=== PATIENT | male | born 1950 | race African-American/Black ===

== ENCOUNTER 2024-09-09 17:26 | Inpatient (IN) | payer MEDICARE, MEDICAID ==
[~2024-09-09] VITALS: Ht 180.3 cm; Wt 69.9 kg
[2024-09-09 18:59] LABS: COVID AG,FIA SOURCE NASAL SWAB
[2024-09-09] MEDS ORDERED: HALOPERIDOL 5 MG TABLET PO PRN (19:00)
[2024-09-09] MEDS ORDERED: ZOLPIDEM TARTRATE 10 MG TABLET PO PRN (19:00)
[2024-09-09 19:02] LABS: BASOPHILS % (AUTO) 0.6 % (0.0-2.0); EOSINOPHILS % (AUTO) 1.1 % (1.0-6.0); HEMATOCRIT 36.8 % (41-53); HEMOGLOBIN 11.8 g/dL (13.5-17.5); LYMPHOCYTES % (AUTO) 36.6 % (22.0-44.0); MEAN CORPUSCULAR HEMOGLOBIN 27.4 pg (26.0-34.0); MEAN CORPUSCULAR VOLUME 86 fL (80-100); MONOCYTES # (AUTO) 0.3 K/uL (0.1-1.0); MONOCYTES % (AUTO) 6.1 % (2.0-9.0); NEUTROPHILS # (AUTO) 3.1 K/uL (1.8-7.7); NEUTROPHILS % (AUTO) 55.6 % (40.0-70.0); PLATELET COUNT (AUTO) 180 K/uL (150-450); RED BLOOD CELL COUNT(AUTO) 4.29 MIL/uL (4.50-5.90); RED CELL DISTRIBUTION WIDTH 21.2 % (11.5-14.5); WHITE BLOOD COUNT (AUTO) 5.5 K/uL (4.5-11.0)
[2024-09-09 19:11] LABS: ANION GAP 4 mmol/L (8-16); CALCIUM, TOTAL 9.3 mg/dL (8.8-10.5); CARBON DIOXIDE 30 mmol/L (22-29); CHLORIDE 106 mmol/L (98-107); CREATININE 1.13 mg/dL (0.60-1.30); GLOMERULAR FILTR. RATE CALC > 60 mL/min (>60); GLUCOSE,RANDOM 76 mg/dL (70-110); POTASSIUM 4.1 mmol/L (3.5-5.1); SODIUM SERUM 140 mmol/L (136-145); UREA NITROGEN, BLOOD 26 mg/dL (7-18)
[2024-09-09 19:19] LABS: SARS-COV2 (COVID) ANTIGEN,FIA Negative (Negative)
[2024-09-09 19:22] LABS: ALCOHOL, BLOOD (SERUM) < 3 mg/dL (0-10)
[2024-09-09 20:10] LABS: APPEARANCE,URINE CLEAR (CLEAR); BILIRUBIN,URINE NEGATIVE (NEGATIVE); COLOR,URINE YELLOW (YELLOW); GLUCOSE, URINE (UA) NEGATIVE (NEGATIVE); KETONES,URINE NEGATIVE (NEGATIVE); LEUKOCYTE ESTERASE ,URINE NEGATIVE (NEGATIVE); NITRATE,URINE NEGATIVE (NEGATIVE); OCCULT BLOOD,URINE NEGATIVE (NEGATIVE); PROTEIN,URINE TRACE mg/dL (NEGATIVE); SPECIFIC GRAVITIY, URINE 1.029 (1.003-1.030)
[2024-09-09 20:20] LABS: ALCOHOL, URINE DRUG SCREEN NEGATIVE (NEGATIVE); AMPHET/METH SCREEN,URINE NEGATIVE (NEGATIVE); BARBITURATE SCREEN, URINE NEGATIVE (NEGATIVE); BENZODIAZEPINES SCREEN,URINE NEGATIVE (NEGATIVE); CANNABINOID SCREEN,URINE NEGATIVE (NEGATIVE); COCAINE SCREEN,URINE NEGATIVE (NEGATIVE); METHADONE SCREEN, URINE NEGATIVE (NEGATIVE); OPIATE SCREEN,URINE NEGATIVE (NEGATIVE); PHENCYCLIDINE SCREEN,URINE NEGATIVE (NEGATIVE)
[2024-09-09 22:05] VITALS: O2SAT 96
[2024-09-10 00:27] LABS: CHOL/HDL RATIO 1.5 (4.2-7.3); CHOLESTEROL 113 mg/dL (131-200); HDL CHOLESTEROL 76 mg/dL (40-60); LDL CHOL (CALC.) 30 mg/dL (0-130); TRIGLYCERIDES 37 mg/dL (15-150)
[2024-09-10 01:39] VITALS: BP 115/59; PULSE 60; RESP 18; TEMP 96.5; O2SAT 97
[2024-09-10] MEDS ORDERED: PNEUMOCOCCAL VACCINE POLYVALENT 0.5 ML SYRINGE [PPSV23] IM. ONE (02:30)
[2024-09-10] MEDS ORDERED: INFLUENZA VIRUS VACCINE TVS (6MO+) 2024-25/PF 45 MCG/0.5 ML SYRINGE IM. ONE (02:30)
[2024-09-10] MEDS ORDERED: OMEPRAZOLE 20 MG CAPSULE PO PRN (05:45)
[2024-09-10] MEDS ORDERED: DOCUSATE SODIUM 100 MG CAPSULE PO PRN (05:45)
[2024-09-10] MEDS ORDERED: BACITRACIN 28 GM OINTMENT TP PRN (05:45)
[2024-09-10] MEDS ORDERED: ALBUTEROL SULFATE HFA 90 MCG/PUFF 8 GM INHALER IH PRN (05:45)
[2024-09-10] MEDS ORDERED: ONDANSETRON 4 MG TABLET PO PRN (05:45)
[2024-09-10] MEDS ORDERED: MAG HYDROX/ALUMINUM HYD/SIMETH ES 30 ML SUSPENSION UDCUP PO PRN (05:45)
[2024-09-10] MEDS ORDERED: BENZOCAINE/MENTHOL LOZENGE PO PRN (05:45)
[2024-09-10] MEDS ORDERED: CloNIDine HCL 0.1 MG TABLET PO PRN (05:45)
[2024-09-10] MEDS ORDERED: IBUPROFEN 600 MG TABLET PO PRN (05:45)
[2024-09-10] MEDS ORDERED: MAGNESIUM HYDROXIDE SUSPENSION 30 ML UDCUP PO PRN (05:45)
[2024-09-10] MEDS ORDERED: LOPERAMIDE HCL 2 MG CAPSULE PO PRN (05:45)
[2024-09-10] MEDS ORDERED: PETROLATUM,WHITE 28 GM JELLY TP PRN (05:45)
[2024-09-10 08:07] VITALS: BP 110/73; PULSE 65; RESP 16; TEMP 97.6; O2SAT 99
[2024-09-10] MEDS: TraZODone HCL 50 MG TABLET PO SCH (12:49)
[2024-09-10] MEDS: SERTRALINE HCL 50 MG TABLET PO SCH (12:49)
[2024-09-10] MEDS: BusPIRone HCL 10 MG TABLET PO SCH (12:49)
[2024-09-10] MEDS: DIVALPROEX SODIUM 250 MG ER TABLET PO SCH (16:22)
[2024-09-10 20:06] VITALS: BP 156/77; PULSE 64; RESP 16; TEMP 96; O2SAT 98
[2024-09-11 08:15] VITALS: BP 148/75; PULSE 71; RESP 18; TEMP 97; O2SAT 96
[2024-09-11 20:20] VITALS: BP 126/74; PULSE 62; RESP 17; TEMP 97.5; O2SAT 97
[2024-09-12 09:12] VITALS: BP 110/76; PULSE 70; RESP 17; TEMP 96.5; O2SAT 99
[2024-09-12 20:25] VITALS: RESP 18
[2024-09-13 08:04] VITALS: BP 108/77; PULSE 66; RESP 17; TEMP 98.2; O2SAT 96
[2024-09-13] MEDS: LORazepam 2 MG TABLET PO PRN (08:38)
[2024-09-13 20:18] VITALS: BP 101/59; PULSE 79; RESP 17; TEMP 97.1; O2SAT 98
[2024-09-14] MEDS: ACETAMINOPHEN 325 MG TABLET PO PRN (16:31)
[2024-09-14 16:32] VITALS: RESP 16; TEMP 99.7
[2024-09-14 20:24] VITALS: BP 102/61; PULSE 76; RESP 15; TEMP 98.9; O2SAT 94
[2024-09-15 03:21] VITALS: BP 134/77; PULSE 71; RESP 17; TEMP 99.1
[2024-09-15] MEDS: DIVALPROEX SODIUM 250 MG ER TABLET PO SCH (08:12)
[2024-09-15] MEDS: BREXPIPRAZOLE 0.25 MG TABLET PO SCH (08:13)
[2024-09-15] MEDS: SERTRALINE HCL 100 MG TABLET PO SCH (08:14)
[2024-09-15] MEDS: BusPIRone HCL 10 MG TABLET PO SCH (08:14)
[2024-09-15 08:33] VITALS: BP 125/66; PULSE 66; RESP 16; TEMP 97.3; O2SAT 98
[2024-09-15 20:05] VITALS: BP 120/75; PULSE 80; RESP 18; TEMP 97.4; O2SAT 98
[2024-09-16 08:03] VITALS: BP 102/60; PULSE 72; RESP 17; TEMP 97.3; O2SAT 96
[2024-09-16] MEDS ORDERED: SERT-440 PO (17:56)
[2024-09-16] MEDS ORDERED: DIVA-85 PO (17:56)
[2024-09-16] MEDS ORDERED: BUSP10TA23 PO (17:56)
[2024-09-16] MEDS ORDERED: TRAZ-252 PO (17:56)
[2024-09-16] MEDS ORDERED: BREX0.25 PO (17:56)
[2024-09-16 20:21] VITALS: BP 117/65; PULSE 68; RESP 16; TEMP 97.2; O2SAT 92
[2024-09-17 08:04] VITALS: BP 126/74; PULSE 73; RESP 17; TEMP 97.2; O2SAT 98
[2024-09-17 20:07] VITALS: BP 119/89; PULSE 70; RESP 18; TEMP 97.5; O2SAT 92
[2024-09-18 08:25] VITALS: BP 102/62; PULSE 71; RESP 18; TEMP 97.5; O2SAT 95
== END 2024-09-18 17:00 | DRG 885 ==
LOC: EMS 17:26 → B2X 09-10 01:31
PROVIDERS: ADMIT Psychiatry & Neurology Child & Adolescent Psychiatry; ATTEND Psychiatry & Neurology Psychiatry
PROC: GZHZZZZ Group Psychotherapy (ICD-10-PCS; principal; 2024-09-11)
PROC: GZ52ZZZ Individual Psychotherapy, Cognitive (ICD-10-PCS; 2024-09-11)
PROC: GZ56ZZZ Individual Psychotherapy, Supportive (ICD-10-PCS; 2024-09-11)
DX: F20.9 Schizophrenia, unspecified (principal); D64.9 Anemia, unspecified; I10 Essential (primary) hypertension; J44.9 Chronic obstructive pulmonary disease, unspecified; Z20.822 Contact with and (suspected) exposure to COVID-19; K59.00 Constipation, unspecified; F41.9 Anxiety disorder, unspecified; K21.9 Gastro-esophageal reflux disease without esophagitis; E78.5 Hyperlipidemia, unspecified; M19.90 Unspecified osteoarthritis, unspecified site; Z86.73 Personal history of transient ischemic attack (TIA), and cerebral infarction without residual deficits
CPT/HCPCS: 80048; 80061; 80164; 80307; 81003; 83036; 85025; 87081; 87340; 87481; 99285; G0480

== ENCOUNTER 2025-01-05 20:32 | Emergency (ER) | payer MEDICARE, OTHER ==
[~2025-01-05] VITALS: Ht 177.8 cm; Wt 72.7 kg
[~2025-01-05 20:32] MED LIST: ASPI81TA87 PO; ATOR20TA PO; BREX0.25 PO; BUSP10TA23 PO; DIVA-85 PO; FERR325T27 PO; SERT-440 PO; TRAZ-252 PO
[2025-01-05 20:55] VITALS: BP 166/94; PULSE 60; RESP 20; TEMP 97.7; O2SAT 100
[2025-01-05] MEDS ORDERED: BISA10SU11 PR (21:04)
[2025-01-05] MEDS ORDERED: MINE133E26 PR (21:04)
[2025-01-05] MEDS ORDERED: LOSA-381 PO (21:04)
[2025-01-05] MEDS ORDERED: BREX1TAB PO (21:04)
[2025-01-05] MEDS ORDERED: ACET-2247 PO (21:04)
[2025-01-05] MEDS ORDERED: MAGN-169 PO (21:04)
== END 2025-01-06 02:30 ==
LOC: EMS 20:32
DX: S51.012A Laceration without foreign body of left elbow, initial encounter (principal); S09.90XA Unspecified injury of head, initial encounter; J44.9 Chronic obstructive pulmonary disease, unspecified; I10 Essential (primary) hypertension; E78.00 Pure hypercholesterolemia, unspecified; F32.A Depression, unspecified; Z79.82 Long term (current) use of aspirin; Z86.19 Personal history of other infectious and parasitic diseases; Z79.899 Other long term (current) drug therapy; W19.XXXA Unspecified fall, initial encounter; Y93.89 Activity, other specified; Y92.89 Other specified places as the place of occurrence of the external cause; Y99.8 Other external cause status
CPT/HCPCS: 70450; 70486; 72125; 99284